=== PATIENT | female | born 2000 | race Two or more races ===

== ENCOUNTER 2021-06-29 22:50 | Emergency (ER) | payer OTHER ==
[2021-06-29 23:01] VITALS: BP 107/46; PULSE 91; TEMP 98.9; BMI 28.7
[2021-06-29 23:52] LABS: EPI CELLS 9 /uL (0-25.1); HYALINE CASTS 1 /uL (0-3.1); PH,URINE 6.5 (5.0-8.0); URINE APPEARANCE CLEAR; URINE BACTERIA 794 /uL (0-1359); URINE BILIRUBIN NEGATIVE (NEGATIVE); URINE COLOR DK YELLOW; URINE GLUCOSE (UA) NEGATIVE (NEGATIVE); URINE KETONE NEGATIVE (NEGATIVE); URINE LEUK ESTERASE 1+ (NEGATIVE); URINE NITRITE NEGATIVE (NEGATIVE); URINE PROTEIN NEGATIVE (NEGATIVE); URINE RBC 22 /uL (0-23.9); URINE WBC 199 /uL (0-25.8)
== END 2021-06-30 00:32 | disposition home or self-care (01) ==
LOC: JER 22:50
DX: N30.01 Acute cystitis with hematuria (principal)
CPT/HCPCS: 81003; 87086; 87186; 99283-25

== ENCOUNTER 2022-02-08 13:41 | Emergency (ER) | payer OTHER ==
[2022-02-08 13:51] VITALS: BP 101/56; PULSE 65; RESP 18; TEMP 99.3; BMI 29.6
[2022-02-08 15:47] LABS: PH,URINE 7.5 (5.0-8.0); URINE APPEARANCE CLEAR; URINE BILIRUBIN NEGATIVE (NEGATIVE); URINE COLOR YELLOW; URINE GLUCOSE (UA) NEGATIVE (NEGATIVE); URINE KETONE NEGATIVE (NEGATIVE); URINE LEUK ESTERASE NEGATIVE (NEGATIVE); URINE NITRITE NEGATIVE (NEGATIVE); URINE PROTEIN NEGATIVE (NEGATIVE); URINE UROBILINOGEN 0.2 mg/dL (0.2-1.0)
[2022-02-08 15:49] LABS: HCG,QUALITATIVE URINE Negative
== END 2022-02-08 16:07 | disposition home or self-care (01) ==
LOC: JERFT 13:41
DX: N89.8 Other specified noninflammatory disorders of vagina (principal)
CPT/HCPCS: 36415; 81003; 84703; 87077; 87086; 87491; 87591; 87661; 99284-25